=== PATIENT | female | born 1970 | race American Indian/Alaskan Native ===

== ENCOUNTER 2017-08-02 08:10 | Outpatient (CLI) | payer OTHER ==
--- NOTE | 2017-08-02 08:46 | XRay Report ---
LEFT ANKLE RADIOGRAPHS INDICATION: Left ankle pain. COMPARISON: None similar at this institution. FINDINGS: AP, lateral and oblique left ankle radiographs demonstrate intact mortise, malleoli and talar dome contour. Small probable degenerative or less likely posttraumatic corticated appearing ossific densities adjacent to the malleoli measure approximately 4 mm. Mild diffuse ankle soft tissue swelling and tibial plafond spurring. Small plantar calcaneal spur as well. CONCLUSION: Left ankle degenerative changes and mild diffuse soft tissue swelling noted, as described. Please correlate. Thank you for the opportunity to participate in this patient's care.
== END 2017-08-02 08:11 | disposition home or self-care (01) ==
LOC: SPVIMAG 08:10
PROVIDERS: ATTEND Orthopaedic Surgery
DX: M19.072 Primary osteoarthritis, left ankle and foot (principal); M77.32 Calcaneal spur, left foot